=== PATIENT | male | born 1970 | race Caucasian/White ===

== ENCOUNTER 2019-05-20 11:02 | Outpatient (CLI) | payer OTHER, SELFPAY ==
--- NOTE | 2019-05-19 14:48 | DI.RAD_ITS ---
EXAM: XR KNEE RT 4V AP,LAT,BEAU,PAT INDICATION: KNEE PAIN. COMPARISON: RIGHT KNEE 3 VIEWS from 03/16/2012 TECHNIQUE: 2D digital imaging was performed. FINDINGS: Four views of the right knee and bilateral Merchant views were obtained. There is marked narrowing o f the medial tibiofemoral cartilaginous joint space. Mild narrowing of lateral patello femoral carti laginous joint space on the right also noted, there is mild bilateral lateral patellar subluxation. There are moderate marginal osteophytes of the right patella and of the medial tibiofemoral joint on the right. IMPRESSION: Conclusion degenerative Changes involving medial to tibial femoral joint and lateral patello femoral joint.
== END 2019-05-20 11:22 ==
PROVIDERS: Visit Provider Student in an Organized Health Care Education/Training Program
DX: M25.561 Pain in right knee (principal); M17.11 Unilateral primary osteoarthritis, right knee; M25.762 Osteophyte, left knee
CPT/HCPCS: 73564

== ENCOUNTER 2020-07-26 09:56 | Emergency (ER) | payer OTHER, SELFPAY ==
[2020-07-26 09:59] VITALS: BP 126/88; PULSE 69; TEMP 36.6; O2SAT 94
[2020-07-26] MEDS: Balanced Salt Solution 15 ML BTL OP (10:14)
[2020-07-26] MEDS: Erythromycin Ophth Oint 3.5 GM TUBE OP (10:14)
[2020-07-26] MEDS: Tetracaine 0.5% 4 ML BTL OP (10:15)
[2020-07-26] MEDS: Fluorescein STRIPS 100/BOX 1 MG OP (10:15)
--- NOTE | 2020-07-26 10:19 | ED.GENADUL_ITS ---
Discharge Plan Disposition Patient Disposition: HOME Condition: Stable Discharge Details Chief Complaint: EyeProblem Clinical Impression: Corneal ulcer, left Primary Care Provider: Unknown,Unknown ED Provider: Kelvin Christian Home Meds and New Rx's Prescriptions: No Action No Known Home Meds RF: 0 Discharge Instructions Additional Instructions: [facility] care will see you at 11 AM for consultation. Please go directly to [facility]. Take the erythromycin ointment with you put hold on use until directed by the golf tournament consultant. 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 Presents with day 2 of left eye irritation and pain. The eye is injected, and slit-lamp examination reveals a corneal ulceration at approximately 11 o'clock in the superonasal quadrant. The patient's golf tournament consultant is local [facility] eye care who is available to see him in 20 minutes. I will discharge him with erythromycin ointment but have him hold use until seen for further evaluation. HPI General Mode of arrival: ambulatory . Date/Time Provider Initiated Documentation: 07/26/20 10:02 . Limitations to Documentation: no limitations . Information obtained by: patient . History of Present Illness 50 year old M presents to the emergency department with the chief complaint of Left eye irritation and pain x2 days, described as moderate, Quality is described as dull, and is localized to the eyes and left. Patient reports no radiation. Patient started experiencing this day(s) and it has been constant. No relieving factors improve symptom(s), Other factors that worsen symptoms (Bright lights) . Patient notes other (Clear watery discharge). Patient did receive the following treatments prior to arrival, none Related Data Home Medications Medication Instructions Recorded Confirmed Unknown [No Known Home Meds] 02/28/18 07/26/20 Allergies Allergy/AdvReac Type Severity Reaction Status Date / Time No Known Drug Allergies Allergy Unverified 07/26/20 10:03 General Stated Complaint: EyeProblem CHIQUI: 4 Review of Systems Narrative: No recent illness. Otherwise healthy male. [facility] Surgical History Arthroplasty of knee R Tonsillectomy Social History Smoking/Tobacco Use Status: Never Smoking risk assessment performed?: Yes Alcohol Intake: current Alcohol Intake frequency: a few times a week Alcohol type: beer Drug use: Never Substance use type: does not use Current gender identity: male Do you feel safe at home: Yes Do you feel safe in your relationship?: Yes Exam Narrative Exam Narrative: GEN: awake, alert, oriented 3. Pleasant, well groomed, interactive. HEAD: Normocephalic, atraumatic ENT: Left tympanic membrane slightly injected, no loss of light reflex, right tympanic membrane unremarkable, external ear exam unremarkable EYES: PERRL, EOMI. the left eye is injected. Fluorescein exam reveals left eye superonasal ulceration at the border of the iris, approximately 11 oclock. No Claudine sign CHEST/RESP: No respiratory distress Neuro: Grossly normal neurologic exam, conversant, interactive. Psych: Speech fluent, thoughts congruent, affect normal Course Vital Signs Vital signs: Vital Signs Temperature 36.6 C 07/26/20 09:59 Pulse 69 07/26/20 09:59 Blood Pressure 126/88 07/26/20 09:59 Pulse Oximetry 94 07/26/20 09:59 Temperature 36.6 C 07/26/20 09:59 Temperature Source Temporal Artery Scan 07/26/20 09:59 Pulse 69 07/26/20 09:59 Respiratory Effort Non-Labored 07/26/20 10:01 Blood Pressure 126/88 07/26/20 09:59 Blood Pressure Position Sitting 07/26/20 09:59 Pulse Oximetry 94 07/26/20 09:59 Oxygen Delivery Method Room Air 07/26/20 09:59 Oxygen Flow Rate 0 07/26/20 09:59 Pain Level 5 07/26/20 09:59
== END 2020-07-26 10:35 | disposition home or self-care (01) ==
PROVIDERS: Emergency Provider Emergency Medicine
DX: H16.002 Unspecified corneal ulcer, left eye (principal)
CPT/HCPCS: 99283

== ENCOUNTER 2021-03-28 10:55 | Emergency (ER) | payer OTHER, SELFPAY ==
[2021-03-28 10:59] VITALS: BP 126/77; PULSE 76; RESP 16; TEMP 37.2; O2SAT 96
--- NOTE | 2021-03-28 11:00 | DI.RAD_ITS ---
Exam(s) XR ANKLE RT COMPLETE EXAM: XR ANKLE RT COMPLETE CLINICAL HISTORY: felt pop while running, r/o fx. TECHNIQUE: 2D digital imaging was performed. COMPARISON: CR LEFT ANKLE COMPLETE from 02/05/2012 CR XR FOOT RT COMPLETE from 03/28/2021 CR XR FOOT RT COMPLETE from 03/28/2021 FINDINGS: BONES: No acute fracture is present. No bony destructive lesion is seen. Chronic appearing small sm oothly marginated bony densities beneath the medial malleolus. Heel spur. JOINTS: The ankle mortise is normally aligned. SOFT TISSUE: Normal. IMPRESSION: No acute abnormality. DATA REPOSITORY: RADIATION DOSE DELIVERED:
--- NOTE | 2021-03-28 11:00 | DI.RAD_ITS ---
Exam(s) XR FOOT RT COMPLETE EXAM: XR FOOT RT COMPLETE CLINICAL HISTORY: felt pop when running, r/o fx 5th MT. TECHNIQUE: 2D digital imaging was performed. COMPARISON: No exams were available for comparison FINDINGS: BONES: No acute fracture is present. No bony destructive lesion is seen. Small heel spurs. JOINTS: No dislocation present. Mild intertarsal degenerative changes. SOFT TISSUE: Normal. IMPRESSION: No acute abnormality. DATA REPOSITORY: RADIATION DOSE DELIVERED:
--- NOTE | 2021-03-28 11:13 | W.ED.GENAD ---
Discharge Plan Disposition Patient Disposition: HOME Condition: Stable Discharge Details Clinical Impression: Right foot sprain Primary Care Provider: Unknown,Unknown ED Provider: Shreya Bhandari Home Meds and New Rx's Prescriptions: No Action No Known Home Meds RF: 0 Discharge Instructions Instructions: Foot Sprain (ED) Additional Instructions: Rest, ice, and elevate the affected area as much as possible. Alternate tylenol and motrin as needed and directed for pain. Follow-up with your primary care doctor in 1 week and with orthopedics if your symptoms do not improve or worsen. Return to the emergency department with any worsening or new concerning symptoms. Referrals: Jerry Arellano MD [ [facility] STAFF PHYSICIAN] - Discharge Data Discharge Date/Time-TO BE ENTERED AT DEPARTURE: 03/28/21 12:01 Discharge Physician: Shreya Bhandari Medical Decision Making 51-year-old male presents with pain overlying the right fifth metatarsal after feeling a pop in his foot in this area while running yesterday. Tenderness to palpation overlying base of the right fifth metatarsal with pain in his right lateral malleolus with range of motion. There is no deformity and he is neurovascularly intact. Patient referred for x-rays which were negative. Patient declined Shai wrap or postop shoe. Advised on the importance of RICE. He was given orthopedic follow-up information if needed. Usual and customary return precautions given prior to discharge. Medical Records Medical records reviewed: Yes I reviewed the patient's medical records. Imaging Data Radiologic Study: Radiologist's impression: XR ANKLE RT COMPLETE CLINICAL HISTORY: felt pop while running, r/o fx. TECHNIQUE: 2D digital imaging was performed. COMPARISON: CR LEFT ANKLE COMPLETE from 02/05/2012 CR XR FOOT RT COMPLETE from 03/28/2021 CR XR FOOT RT COMPLETE from 03/28/2021 FINDINGS: BONES: No acute fracture is present. No bony destructive lesion is seen. Chronic appearing small smoothly marginated bony densities beneath the medial malleolus. Heel spur. JOINTS: The ankle mortise is normally aligned. SOFT TISSUE: Normal. IMPRESSION: No acute abnormality. XR FOOT RT COMPLETE CLINICAL HISTORY: felt pop when running, r/o fx 5th MT. TECHNIQUE: 2D digital imaging was performed. COMPARISON: No exams were available for comparison FINDINGS: BONES: No acute fracture is present. No bony destructive lesion is seen. Small heel spurs. JOINTS: No dislocation present. Mild intertarsal degenerative changes. SOFT TISSUE: Normal. IMPRESSION: No acute abnormality. HPI General Mode of arrival: ambulatory. Date/Time Provider Initiated Documentation: 03/28/21 11:06. Limitations to Documentation: no limitations. Information obtained by: patient. HPI Narrative: Patient is a 51-year-old male who presents with right foot pain after feeling a pop in his right lateral foot while running yesterday. Patient states he has pain in his right fifth metatarsal. He does admit to some pain radiating to his right ankle. He took ibuprofen prior to arrival. Related Data Home Medications Medication Instructions Recorded Confirmed Unknown [No Known Home Meds] 02/28/18 03/28/21 Allergies Allergy/AdvReac Type Severity Reaction Status Date / Time No Known Drug Allergies Allergy Unverified 03/28/21 11:06 General Stated Complaint: Orthopedic CHIQUI: 4 Review of Systems All systems reviewed & are unremarkable except as noted in HPI and below PFSH Surgical History Arthroplasty of knee R Tonsillectomy Social History Smoking/Tobacco Use Status: Never Smoking risk assessment performed?: Yes Alcohol Intake: current Alcohol Intake frequency: a few times a week Alcohol type: beer Drug use: Never Substance use type: does not use Current gender identity: male Do you feel safe at home: Yes Do you feel safe in your relationship?: Yes Exam Const General: cooperative, healthy appearing and no acute distress HENMT Head: normal to inspection Mouth: oral mucosae normal Eyes General: appearance normal, both eyes and all related structures Neck Neck: normal visual inspection Resp Effort & Inspection: normal respiratory effort and able to speak in complete sentences Cardio Rate: regular rate Skin General skin exam: no rashes or lesions noted Neuro General: patient alert, patient awake and patient oriented x3 Motor: muscle tone normal throughout Extrem Ankle/foot/toe images: 1. Tenderness to palpation overlying base of fifth metatarsal on dorsal and plantar surface. Other: There is pain in right lateral malleolus with range of motion but no tenderness to palpation to medial or lateral malleolus. There is no deformity. Neurovascularly intact. Psych Appearance: grossly normal Affect: normal affect Course Vital Signs Vital signs: Vital Signs Temperature 99.0 F 03/28/21 10:59 Pulse 76 03/28/21 10:59 Respiratory Rate 16 03/28/21 10:59 Blood Pressure 126/77 03/28/21 10:59 Pulse Oximetry 96 03/28/21 10:59 Temperature 99.0 F 03/28/21 10:59 Temperature Source Tympanic 03/28/21 10:59 Pulse 76 03/28/21 10:59 Respiratory Rate 16 03/28/21 10:59 Respiratory Effort Non-Labored 03/28/21 11:06 Blood Pressure 126/77 03/28/21 10:59 Blood Pressure Position Sitting 03/28/21 10:59 Pulse Oximetry 96 03/28/21 10:59 Oxygen Delivery Method Room Air 03/28/21 10:59 Oxygen Flow Rate 0 03/28/21 10:59 Pain Level 3 03/28/21 11:08
== END 2021-03-28 12:01 | disposition home or self-care (01) ==
PROVIDERS: Emergency Provider Physician Assistant
DX: S93.691A Other sprain of right foot, initial encounter (principal); S99.911A Unspecified injury of right ankle, initial encounter; X50.9XXA Other and unspecified overexertion or strenuous movements or postures, initial encounter; Y93.02 Activity, running
CPT/HCPCS: 99284; 73610; 73630; 99283

== ENCOUNTER 2021-07-06 02:43 | Outpatient (CLI) | payer OTHER, SELFPAY ==
[2021-07-06 10:14] LABS: Source Nasal/Nares
[2021-07-06 13:11] LABS: COVID-19 PCR Negative (Negative)
== END 2021-07-06 02:44 | disposition home or self-care (01) ==
LOC: LBO 02:43
PROVIDERS: Surgery; Visit Provider Physical Therapy Assistant
DX: Z20.822 Contact with and (suspected) exposure to COVID-19 (principal); Z01.818 Encounter for other preprocedural examination
CPT/HCPCS: 87635

== ENCOUNTER 2021-07-09 10:02 | Day surgery (SDC) | payer OTHER, SELFPAY ==
--- NOTE | 2021-07-09 06:40 | W.COLOREPORT ---
Colonoscopy Report Date of procedure: 07/09/21 Pre-op diagnosis general: Colon Cancer Screening Post-op diagnosis procedure note: same Procedure: Colonoscopy Surgeon: Stefania Dao Anesthesia Type: General:No Airway (Purnima Bruno CRNA) Estimated blood loss (mL): 0 Pathology: none sent Complications: None Disposition: same day Indications: Encounter for screening colonoscopy: The patient is here for Colonoscopy pre-op. He has no family history of colon cancer. He has not had any bowel habit changes. -Discussed colonoscopy bowel prep as well as the procedure. Discussed possible complications of the procedure to include bleeding, pain, perforation, missed small lesion/polyp, sore throat, aspiration and adverse reaction to the medications. Questions were answered to patient?s satisfaction. No guarantees were implied or given. Prep: Miralax/Dulcolax Procedure Start Time: 11:54 Procedure End Time: 12:15 Retraction Time: 10 minutes Findings: NOrmal colon Procedure Description: After informed consent was obtained the patient was taken to the procedure room and placed in a left decubitous position. Monitors were applied and a time out was done. The patients name, date of , procedure, allergies to medications and metal in their body was reviewed. The patient was then sedated. Once sedated and comfortable a rectal exam was done. External exam was normal. Internal exam revealed a normal sphincter tone and no palpable masses. The prostate felt smooth. The scope was then introduced and retro-flexed. No internal hemorrhoids, polyps or masses were identified on retro-flexion. The scope was then advanced to the cecum without difficulty. The ileocecal vlave and appendiceal orifice were identified. The prep was good. The scope was then slowly retracted over 10 minutes back into the rectum. There were no Polyps or diverticulosis noted. The scope was removed and the patient was woken up and taken back to Same day surgery in stable condition. The patient tolerated the procedure well and there were no immediate complications. Follow up: The patient should follow up in 10 years unless they develop changes in bowel habits or other new gastrointestinal complaints.
--- NOTE | 2021-07-09 06:41 | W.PM.DSUDISC ---
Discharge Plan Disposition Patient Disposition: HOME Condition: Stable Discharge Details Reason For Visit: Colonoscopy Attending Provider: Stefania Dao Primary Care Provider: Unknown,Unknown Home Meds and New Rx's Prescriptions: No Action No Known Home Meds RF: 0 Discharge Instructions Additional Instructions: Findings: Normal Follow up: 10 years Please call if you develop: fevers >101.5 Nausea or Vomiting Abdominal pain that is not transient Rectal bleeding that is more then a tbsp A hard abdomen and inability to pass gas DAY SURGERY UNIT POST ENDOSCOPY INSTRUCTIONS Instructions for everyone who is given Anesthesia: For your safety, please do the following for the next 24 Hours: a. Do not drive or operate dangerous equipment b. Do not drink alcohol beverages or use any recreational drugs for the first 24 hours or while taking pain medications. The medications in your body may have a reaction that can be dangerous. c. Do not make any important decisions or sign any important papers 1. Generally there are no restrictions on your activity after a day or so has gone by, but you may feel a bit fatigued for a few days. 2. After you arrive home you may have a light meal and return to a normal diet as you can tolerate it without feeling sick to your stomach. 3. After surgery, you may feel pain or discomfort. This should be only transient, but if it persists please contact your doctor. 4. If there are any questions regarding the findings of your procedure, please feel free to contact your doctor. 6. If you are unable to contact your doctor with a problem, contact the hospital at [phone]. 7. Continue all your regular medications unless directed otherwise. I understand the above instructions and have no questions. Signature of Patient or Responsible Adult Escort Date/Time Name of Responsible Adult Escort Signature of Nurse Date/Time Activity:: Activity as Tolerated Diet:: As Tolerated Discharge Orders Discharge Orders: Discharge Order (Routine); Ordered 07/09/21 Ordered By: Stefania Dao
[2021-07-09 10:29] VITALS: BP 138/95; PULSE 70; RESP 18; TEMP 37.1; O2SAT 98
[2021-07-09] MEDS: Lactated Ringers 1,000 ML 80 ML IV (10:47)
--- NOTE | 2021-07-09 10:59 | W.ANESPRE ---
General Info Date of Service Date Performed: 07/09/21 Height: 5 ft 4 in Weight: 79.9 kg Body Mass Index (BMI): 30.2 Surgical Procedure: Operation Date: 07/09/21 11:50 Proposed Procedures Side Surgeon génesis Dao MD Meds Allergies and Home Medications Allergies Allergy/AdvReac Type Severity Reaction Status Date / Time No Known Drug Allergies Allergy Unverified 07/09/21 10:24 Home Medication Medication Instructions Recorded Unknown [No Known Home Meds] 02/28/18 Current Visit Medications: Current Medications Generic Name Dose Route Start Last Admin Trade Name Freq PRN Reason Stop Dose Admin Hyoscyamine Sulfate 0.125 mg 07/09/21 06:42 Hyoscyamine 0.125 Mg Sl/Oral/Chew SL DIRECTED PRN Ringer's Solution 1,000 mls @ 80 mls/hr 07/09/21 06:00 07/09/21 10:47 IV 08/05/21 23:59 80 mls/hr INFUSION ALAYNA Administration IV Miscellaneous Supplies 1 each 07/09/21 06:00 Iv Access IV 08/05/21 23:59 DIRECTED ALAYNA Ondansetron HCl 4 mg 07/09/21 06:42 Ondansetron 4 Mg/2 Ml Vial IVP Q4H PRN PRN Nausea / Vomiting Sodium Chloride 0 ml 07/09/21 06:00 Normal Saline Flush 10 Ml Syr IV 08/05/21 23:59 PRN PRN Sodium Chloride 0 ml 07/09/21 06:00 Normal Saline 10 Ml Vial IJ 08/05/21 23:59 DIRECTED PRN Sterile Water 0 ml 07/09/21 06:00 Water,Injection,Sterile 10 Ml Vial IJ 08/05/21 23:59 DIRECTED PRN PFSH Active Problems Active Problems: Problem Status Onset Code Chondromalacia, 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 Encounter for screening for other viral diseases Z11.59 Right foot sprain S93.601A Skin lesion L98.9 Medical History Active Problem List Chondromalacia, right knee (Acute) 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 (Acute) Encounter for screening for other viral diseases (Acute) Right foot sprain (Acute) Skin lesion (Acute) Surgical History Surgical History Arthroplasty of knee R-Arthroscopy Tonsillectomy Tobacco Smoking/Tobacco Use Status: Never Alcohol Alcohol Intake: current Alcohol intake frequency: a few times a week Alcohol type: beer Substance Use Substance use: Never Substance use type: does not use Vital Signs and Lab Results Vital Signs Most Recent Vital Signs in EMR: Most Recent Vital Signs Temp Pulse Resp BP Pulse Ox 37.1 C 70 18 138/95 H 98 07/09/21 10:29 07/09/21 10:29 07/09/21 10:29 07/09/21 10:29 07/09/21 10:29 Lab Results Blood Type / Crossmatch: No Data to Display Complete Blood Count: No Data to Display Complete Metabolic Panel: No Data to Display Liver Function Panel: No Data to Display Coagulation Panel: No Data to Display Cardiac Panel: No Data to Display Arterial Blood Gas: No Data to Display Venous Blood Gas: No Data to Display Pancreas Panel: No Data to Display Thyroid Panel: No Data to Display Infectious Disease: Coronavirus (COVID-19)(PCR) Negative (Negative) 07/06/21 08:37 07/06/21 Coronavirus 2019 Source Nasal/Nares 07/06/21 08:37 07/06/21 Blood Cultures: No Data to Display Toxicology Panel: No Data to Display Anesthesia Assessment and Plan Anesthesia History Personal History: No History of Anesthesia Complications Family History: No Family History of Anesthesia Complications Exercise Tolerance Exercise Tolerance: Metabolic Equivalents>4 Pertinent Negatives Pertinent Negatives: No Symptoms of GERD, No Major Cardiovascular Symptoms or Complaints, No Major Pulmonary Symptoms or Complaints and No History of CVA/TIA Cardiac & Pulmonary Exam Cardiac Exam: Normal S1/S2 Heart Sounds Pulmonary Exam: Clear Bilateral Breath Sounds Implantable Cardiac Device Does patient have a Pacemaker or an ICD?: No Airway Exam Known Difficult Airway: No Mallampati Class: 2 Mouth Opening: Normal (> 3cm) Thyromental Distance: Greater than 3 cm Neck Range of Motion: Full ROM Neck Circumference: Normal Teeth Condition: Normal Dentition ASA Classification ASA Score: ASA 2 Emergency Case?: No NPO Status NPO Status: NPO Clears >2 hours, Solids >8 hours Anesthesia Plan Resuscitation Status: Full Code Anesthesia Technique: General Anesthesia Airway Planned: Natural Airway Monitors Used: Standard Monitors
[2021-07-09 11:00] VITALS: BMI 30.2
[2021-07-09 12:28] VITALS: BP 136/90; PULSE 78; RESP 16; TEMP 36.3; O2SAT 96
--- NOTE | 2021-07-09 12:50 | W.ANESPOSTOP ---
Postoperative Evaluation Date, Time and Location Date Performed: 07/09/21 Time Performed: 12:50 Patient Location: Day Surgery Unit Vital Signs Most Recent Imported Vital Signs: Most Recent Vital Signs Temp Pulse Resp BP Pulse Ox 36.3 C L 78 16 136/90 96 07/09/21 12:28 07/09/21 12:28 07/09/21 12:28 07/09/21 12:28 07/09/21 12:28 Pain Score Most Recent Pain Score: Most Recent Pain Score Pain Level 0 07/09/21 12:28 Assessment Mental Status: Awake (Alert & Oriented to Patient Baseline) Airway and Respiratory Function: Patent airway with normal (patient baseline) respiratory exam Cardiovascular Function: Hemodynamically Stable Hydration Status: Adequately Hydrated Nausea & Vomiting: No Nausea or Vomiting Pain: Pt. Denies Any Pain Peripheral Nerve Block: Patient did not receive a nerve block
[2021-07-09 12:55] VITALS: BP 130/89; PULSE 66; RESP 16; TEMP 36.3; O2SAT 98
== END 2021-07-09 13:05 | disposition home or self-care (01) ==
LOC: SUR 10:03
PROVIDERS: Visit Provider Surgery
PROC: 0DJD8ZZ Inspection of Lower Intestinal Tract, Via Natural or Artificial Opening Endoscopic (ICD-10-PCS; CPT 45378; principal; 2021-07-09 11:45)
DX: Z12.11 Encounter for screening for malignant neoplasm of colon (principal)
CPT/HCPCS: 45378; J2704

== ENCOUNTER 2022-05-13 15:27 | Outpatient (CLI) | payer OTHER, SELFPAY ==
--- NOTE | 2022-05-13 15:15 | DI.RAD_ITS ---
Exam(s) XR STANDING ALIGNMENT XR KNEE RT 1V EXAM: XR STANDING ALIGNMENT CLINICAL HISTORY: preop. TECHNIQUE: 2D digital imaging was performed. Standing AP views were performed from the pelvis throu gh the ankles. COMPARISON: CR XR KNEE RT 4V AP,LAT,BEAU,PAT from 05/19/2019 CR XR KNEE RT 1V from 05/13/2022 FINDINGS: BONES: No acute fracture is present. No bony destructive lesion is seen. Leg length discrepancy: No significant leg length discrepancy. JOINTS: Knees: There is moderate severe narrowing narrowing of the medial femoral tibial joint space. There is prominent periarticular spurring. Spurring is also noted at the patella. There is an ent hesophyte at the quadriceps insertion. Mild degenerative changes are noted in the left knee. The ankle joints are unremarkable. The hip joints are unremarkable. SOFT TISSUE: Normal. IMPRESSION: Advanced degenerative changes of the right knee.. No significant leg length discrepancy. DATA REPOSITORY: RADIATION DOSE DELIVERED:
== END 2022-05-13 15:28 | disposition home or self-care (01) ==
LOC: DIORS 15:27
PROVIDERS: Visit Provider Physician Assistant Surgical
DX: M94.261 Chondromalacia, right knee (principal); M17.11 Unilateral primary osteoarthritis, right knee
CPT/HCPCS: 73560; 77073

== ENCOUNTER 2022-05-22 15:12 | Outpatient (CLI) | payer OTHER, SELFPAY ==
[2022-05-22 14:47] LABS: HCT 43.7 % (40.0-50.0); HGB 15.2 g/dL (13.5-17.5); MCH 31.2 pg (27.0-33.0); MCHC 34.8 % (32.0-36.0); MCV 90 fL (80-95); MPV 10.2 fL (8.0-11.0); Platelet Count 267 10^3/uL (130-400); RBC 4.87 10^6/uL (4.36-5.78); RDW-SD 39.2 fL
[2022-05-22 15:35] LABS: Anion Gap 8.8 mmol/L (3-11); BUN 29 mg/dL (7-18); CO2 27.2 mmol/L (21.0-32.0); CREATININE 1.1 mg/dL (0.70-1.30); Calcium 9.8 mg/dL (8.5-10.1); Chloride 103 mmol/L (98-107); Estimated GFR 81.28 (mL/min/1.73m2); Glucose 99 mg/dL (74-106); Potassium 3.9 mmol/L (3.5-5.1); Sodium 139 mmol/L (136-145)
== END 2022-05-22 15:13 | disposition home or self-care (01) ==
LOC: LBO 15:12
PROVIDERS: Visit Provider Student in an Organized Health Care Education/Training Program
DX: M25.561 Pain in right knee (principal); M17.11 Unilateral primary osteoarthritis, right knee; Z01.818 Encounter for other preprocedural examination; Z01.812 Encounter for preprocedural laboratory examination
CPT/HCPCS: 36415; 80048; 85027

== ENCOUNTER 2022-05-28 08:34 | Day surgery (SDC) | payer OTHER, SELFPAY ==
[2022-05-28] VITALS (11 sets, daily range): BP systolic 113–139; BP diastolic 68–99; PULSE 68–86; RESP 11–18; TEMP 36.3–36.7; O2SAT 95–97; BMI 29.5
--- NOTE | 2022-05-28 07:26 | PDOC.DSDIS_ITS ---
Discharge Plan Disposition Patient Disposition: HOME Condition: Good Discharge Details Reason For Visit: Right TKA Attending Provider: Jared Duarte Primary Care Provider: Unknown,Unknown Home Meds and New Rx's Prescriptions: New celecoxib [Celebrex] 200 mg capsule 200 mg PO BID Qty: 60 0RF aspirin 81 mg tablet,delayed release (DR/EC) 81 mg PO BID Qty: 60 0RF pantoprazole [Protonix] 40 mg tablet,delayed release (DR/EC) 40 mg PO DAILY Qty: 30 0RF gabapentin 300 mg capsule 300 mg PO QHS Qty: 14 0RF acetaminophen 500 mg capsule 1,000 mg PO Q8H PRN PRNQty: 90 0RF oxycodone 5 mg tablet 5 mg PO Q4H PRNQty: 18 0RF dexamethasone [Decadron] 4 mg tablet 4 mg PO DAILY Qty: 2 0RF Discharge Instructions Additional Instructions: Total Knee Discharge Instructions Activity: The most important activity is to walk and to work on gentle motion (both flexion and extension). You should try to take short walks a few times a day. It is important that when resting you work on keeping the knee straight. Avoid putting a pillow behind the knee as this will encourage flexion. Work on range of motion exercises as provided by Physical Therapy. - Start outpatient physical therapy within 2 weeks. - You should wear the ZANDRA hose on both legs for 2 weeks. You may remove these at night. You may also use any compression sock in place of the ZANDRA hose. - Utilize [employer] to review exercises, see videos on exercises and obtain basic information pertaining to your surgery and your recovery. Dressing: Remove the Shai wrap by 2 days after your surgery and put on the ZANDRA stocking given to you from the hospital. Keep the surgical dressing (underneath the SHAI wrap) in place for at least one week. After the first week it may be removed and replaced with light gauze and tape or nothing. The wound and dressing may get wet after 3 days but avoid soaking the dressing or otherwise it will need to be changed. Many people prefer covering the dressing with cling wrap (saran wrap) to minimize it from getting soaked. If it gets wet, just pat dry. If it starts to peel off then it will need to be changed. Medications: - You should take Tylenol and anti-inflammatory Celebrex as your primary pain control medications. If the Celebrex is too expensive or not covered, please call the office for another alternative (Advil/Ibuprofen or Naproxen/Aleve) - You have been prescribed a stronger pain medication Oxycodone for breakthrough pain, take as needed as prescribed. - You have also been prescribed a stomach acid reduction agent Pantoprozole to help reduce stomach acid and reflux. - You have been prescribed Gabapentin to take at night for restlessness and nerve pain. - You will be taking Aspirin 81mg twice a day for DVT prevention unless instructed otherwise. - You have also been prescribed Decadron to take to control post-operative nausea and pain. You will start this tomorrow for 2 days. - If you have constipation you should take Colace or Miralax (both [id number]). It takes most people 3-4 days to have a bowel movement. Follow-up: 2 weeks If you have any acute concerns or questions, please do not hesitate to contact the office at [phone]. You may contact Dr. Duarte with any questions after hours through the hospital at [phone] or on his cell phone at [phone]. Referrals: Jared Duarte MD [ [facility] STAFF PHYSICIAN] - Activity:: Activity as Tolerated Remove Dressings/Wound Care:: Do Not Remove Shower/Bathe:: 72 hours Diet:: As Tolerated Discharge Orders Discharge Orders: Discharge Order (Routine); Ordered 05/28/22 Ordered By: Jody Sales DS: Diagnosis Discharge Diagnosis (1) Traumatic arthritis of right knee: Status: Acute
--- NOTE | 2022-05-28 09:07 | ANES.PREOP_ITS ---
General Info Date of Service Date Performed: 05/28/22 Height: 5 ft 5 in Weight: 80.5 kg Body Mass Index (BMI): 29.5 Surgical Procedure: Operation Date: 05/28/22 11:40 Proposed Procedure Side Surgeon p Knee Total Arthroplasty Cementless CR Right Jared Duarte MD Meds Allergies and Home Medications Allergies Allergy/AdvReac Type Severity Reaction Status Date / Time No Known Drug Allergies Allergy Verified 05/28/22 08:44 Home Medication Medication Instructions Recorded acetaminophen 500 mg capsule 1,000 mg PO Q8H PRN PRN #90 caps 05/28/22 aspirin 81 mg tablet,delayed 81 mg PO BID #60 tabs 05/28/22 release celecoxib 200 mg capsule (Celebrex) 200 mg PO BID #60 caps 05/28/22 dexamethasone 4 mg tablet 4 mg PO DAILY #2 tabs 05/28/22 (Decadron) gabapentin 300 mg capsule 300 mg PO QHS #14 caps 05/28/22 oxycodone 5 mg tablet 5 mg PO Q4H PRN #18 tabs 05/28/22 pantoprazole 40 mg tablet,delayed 40 mg PO DAILY #30 tabs 05/28/22 release (Protonix) Current Visit Medications: Current Medications Generic Name Dose Route Start Last Admin Trade Name Freq PRN Reason Stop Dose Admin Acetaminophen 1,000 mg 05/28/22 06:00 Acetaminophen 500 Mg Tab PO 05/28/22 16:00 PREOP [facility] Acetaminophen 1,000 mg 05/28/22 14:00 Acetaminophen 500 Mg Tab PO TID [facility] Celecoxib 400 mg 05/28/22 06:00 Celecoxib 200 Mg Cap PO 05/28/22 16:00 PREOP ALAYNA Celecoxib 200 mg 05/28/22 20:00 Celecoxib 200 Mg Cap PO BID ALAYNA Gabapentin 300 mg 05/28/22 06:00 Gabapentin 300 Mg Cap PO 05/28/22 16:00 PREOP ALAYNA Hydromorphone HCl 0.5 mg 05/28/22 07:25 Hydromorphone 2 Mg/Ml Syr IVP Q2H PRN PRN Tranexamic Acid 1,000 mg/ 60 mls @ 360 mls/hr 05/28/22 06:00 Sodium Chloride IVPB 05/28/22 16:00 PREOP ALAYNA Ringer's Solution 1,000 mls @ 80 mls/hr 05/28/22 06:00 IV 06/26/22 23:59 INFUSION ALAYNA Cefazolin Sodium/Dextrose 2 gm in 50 mls @ 100 mls/hr 05/28/22 06:00 Ancef Duplex IVPB 06/26/22 23:59 PREOP ALAYNA Cefazolin Sodium/Dextrose 1 gm in 50 mls @ 100 mls/hr 05/28/22 18:00 Ancef Duplex IVPB 05/29/22 10:29 Q8H ALAYNA IV Miscellaneous Supplies 1 each 05/28/22 06:00 Iv Access IV 06/26/22 23:59 DIRECTED ALAYNA Ondansetron HCl 4 mg 05/28/22 07:25 Ondansetron 4 Mg/2 Ml Vial IVP Q6H PRN PRN Nausea Oxycodone HCl 0 mg 05/28/22 07:25 Oxycodone 5 Mg Tab PO Q3H PRN PRN Pain Sodium Chloride 0 ml 05/28/22 06:00 Normal Saline Flush 10 Ml Syr IV 06/26/22 23:59 PRN PRN Sodium Chloride 0 ml 05/28/22 06:00 Normal Saline 10 Ml Vial IJ 06/26/22 23:59 DIRECTED PRN Sterile Water 0 ml 05/28/22 06:00 Water,Injection,Sterile 10 Ml Vial IJ 06/26/22 23:59 DIRECTED PRN PFSH Active Problems Active Problems: Problem Status Onset Code Traumatic arthritis of right knee M12.561 Chondromalacia, 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 Encounter for screening for other viral diseases Z11.59 Right foot sprain S93.601A Skin lesion L98.9 Medical History Medical History Normal colonoscopy (~06/2021) Surgical History Surgical History Arthroplasty of knee R-Arthroscopy History of colonoscopy (~06/2021) Tonsillectomy Tobacco Smoking/Tobacco Use Status: Never Alcohol Alcohol Intake: current Alcohol intake frequency: a few times a week Alcohol type: beer Substance Use Substance use: Never Substance use type: does not use Vital Signs and Lab Results Vital Signs Most Recent Vital Signs in EMR: Most Recent Vital Signs Temp Pulse Resp BP Pulse Ox 36.3 C L 86 18 139/91 H 97 05/28/22 08:35 05/28/22 08:35 05/28/22 08:35 05/28/22 08:35 05/28/22 08:35 Lab Results Blood Type / Crossmatch: No Data to Display Complete Blood Count: White Blood Count 9.00 10^3/uL (4.4-10.8) 05/22/22 14:35 Red Blood Count 4.87 10^6/uL (4.36-5.78) 05/22/22 14:35 Hemoglobin 15.2 g/dL (13.5-17.5) 05/22/22 14:35 Hematocrit 43.7 % (40.0-50.0) 05/22/22 14:35 Platelet Count 267 10^3/uL (130-400) 05/22/22 14:35 Complete Metabolic Panel: Sodium 139 mmol/L (136-145) 05/22/22 14:35 Potassium 3.9 mmol/L (3.5-5.1) 05/22/22 14:35 Chloride 103 mmol/L (98-107) 05/22/22 14:35 Carbon Dioxide 27.2 mmol/L (21.0-32.0) 05/22/22 14:35 BUN 29 mg/dL (7-18) H 05/22/22 14:35 Creatinine 1.1 mg/dL (0.70-1.30) 05/22/22 14:35 Est GFR (CKD-EPI 2020) 81.28 (mL/min/1.73m2) 05/22/22 14:35 Calcium 9.8 mg/dL (8.5-10.1) 05/22/22 14:35 Glucose 99 mg/dL (74-106) 05/22/22 14:35 Liver Function Panel: No Data to Display Coagulation Panel: No Data to Display Cardiac Panel: No Data to Display Arterial Blood Gas: No Data to Display Venous Blood Gas: No Data to Display Pancreas Panel: No Data to Display Thyroid Panel: No Data to Display Infectious Disease: No Data to Display Blood Cultures: No Data to Display Toxicology Panel: No Data to Display Anesthesia Assessment and Plan Anesthesia History Personal History: No History of Anesthesia Complications Family History: No Family History of Anesthesia Complications Exercise Tolerance Exercise Tolerance: Metabolic Equivalents>4 Pertinent Negatives Pertinent Negatives: No Symptoms of GERD, No Major Cardiovascular Symptoms or Complaints, No Major Pulmonary Symptoms or Complaints and No History of CVA/TIA Cardiac & Pulmonary Exam Cardiac Exam: Normal S1/S2 Heart Sounds Pulmonary Exam: Clear Bilateral Breath Sounds Implantable Cardiac Device Does patient have a Pacemaker or an ICD?: No Airway Exam Known Difficult Airway: No Mallampati Class: 2 Mouth Opening: Normal (> 3cm) Thyromental Distance: Greater than 3 cm Neck Range of Motion: Full ROM Neck Circumference: Normal Teeth Condition: Normal Dentition ASA Classification ASA Score: ASA 2 Emergency Case?: No NPO Status NPO Status: NPO Clears >2 hours, Solids >8 hours Anesthesia Plan Resuscitation Status: Full Code Anesthesia Technique: Spinal Anesthesia Airway Planned: Natural Airway Pain Management: Surgeon and patient request nerve block Monitors Used: Standard Monitors
[2022-05-28] MEDS: Celecoxib 200 MG CAP 400 MG PO (09:16)
[2022-05-28] MEDS: Gabapentin 300 MG CAP PO (09:17)
[2022-05-28] MEDS: Acetaminophen 500 MG TAB 1000 MG PO (09:17)
[2022-05-28] MEDS: Lactated Ringers 1,000 ML 80 ML IV (09:17)
[2022-05-28] MEDS: ceFAZolin 2 GM/50 ML BAG IVPB (10:29)
--- NOTE | 2022-05-28 11:26 | W.ANESNERVE ---
Nerve Block Single Injection Procedure Date and Time Date Performed: 05/28/22 Procedure Start: 10:10 Location Where Procedure Performed Procedure Location: Day Surgery Unit Reason Performed: Postoperative Analgesia Requesting Provider: Jared Duarte Timeout Performed Timeout Performed: Yes Monitoring Used ECG, Blood Pressure, SpO2 and See EMR for corresponding vital signs Sterility Sterility: Hand Hygiene, Surgical Cap, Surgical Mask, Sterile Gloves, Sterile Drape/Sheet and Chlorhexidine Sedation Given During Procedure Sedation Given (Indicate Dose Given): No Sedation given Patient Mental Status Patient Mental Status: Awake Nerve Block 1st Nerve Block: Laterality: Right Block Type: Adductor Canal Needle / Catheter Used: 100mm SonoPlex II Local Anesthetic Bolus (Indicate Dose Given): Lidocaine used for local infiltration of skin, Injected in 3-5ml increments after negative blood aspiration, Blood noted on aspiration (Needle withdrawn, line cleared prior to re-insertion. ), Bupivacaine 0.25% Dose:: 10 ml and Exparel Dose:: 10 ml Additives (Indicate Dose Given): None Ultrasound: Sterile probe cover and gel used Ultrasound Image Saved?: Yes Nerve Stimulator: Not Used Paresthesia: None Post Procedure Pain score (0-10): 0 Procedure Tolerated: No Complications and Patient tolerated well Procedure Outcome: Successful Performed By: Abena Bruno
[2022-05-28] MEDS: fentaNYL 100 MCG/2 ML VIAL IVP ×2 (12:37→13:03)
--- NOTE | 2022-05-28 13:52 | W.ANESPOSTOP ---
Postoperative Evaluation Date, Time and Location Date Performed: 05/28/22 Time Performed: 13:52 Patient Location: Day Surgery Unit Vital Signs Most Recent Imported Vital Signs: Most Recent Vital Signs Temp Pulse Resp BP Pulse Ox 36.5 C 75 18 113/71 97 05/28/22 13:33 05/28/22 13:33 05/28/22 13:33 05/28/22 13:33 05/28/22 13:33 Pain Score Most Recent Pain Score: Most Recent Pain Score Pain Level 1 05/28/22 13:20 Assessment Mental Status: Awake (Alert & Oriented to Patient Baseline) Airway and Respiratory Function: Patent airway with normal (patient baseline) respiratory exam Cardiovascular Function: Hemodynamically Stable Hydration Status: Adequately Hydrated Nausea & Vomiting: No Nausea or Vomiting Pain: Pain is tolerable per patient Peripheral Nerve Block: Regional nerve block not resolved at time of post operative discharge
--- NOTE | 2022-05-28 15:02 | PT.INIE ---
PT Notes Visit Reasons: Right TKA Inpatient Physical Therapy Evaluation Date: 05/28/22 Referring Doctor: Dr. Duarte PT Orders: PT CONSULT: right knee OA, s/p TKA post op day 0 Precautions: standard Patient Profile/Admitting Diagnosis: PT order received for 52 year old patient with right knee OA, s/p TKA post op day 0. PMHX: non-contributory Social History/Home Situation: Lives with in multi-level home. is present and supportive at time of consult. Equipment Owned/DME: bilat axillary crutches Subjective: Savage is anxious to get up and try walking. Has questions about resuming activity. Objective: General Observation: Resting in bed with cryocuff to right knee. Mental Status: A&Ox3 Pain: well-managed ROM: Right Upper Extremity: WFL Left Upper Extremity: WFL Right Lower Extremity: Actively demonstrates up to 90 degrees of hip flexion. Left Lower Extremity: WFL Strength: Right Upper Extremity: WFL Left Upper Extremity: WFL Right Lower Extremity: Able to demonstrate good quad activation with quad sets. Able to pump ankles and wiggle toes. Left Lower Extremity: WFL Sensation: intact distally Bed Mobility/Transfers: supine-sit: independent sit-stand: independent stand-sit: independent Gait: Ambulates 50'x2, FWW, CGA to supervision. Requests instruction with bilat axillary crutches, and ambulates additional 75' with CGA, cues and bilat axillary crutches. Stairs: manages therapeutic stairs x 2, bilat rails, CGA and cues for technique Balance: Static Sitting: normal Dynamic Sitting: normal Static Standing: good Dynamic Standing: fair Informed Consent/Education: Patient instructed in purpose of PT consult and plan of care. Treatment: Initial Evaluation: 68780 Gait Training Therapeutic Exercises: Instructed in the following: Ankle Pumps 10x Quad sets 10x Glute Sets 10x heel slides 10x SLR 10x Assessment: Patient is a 52 year old male referred to physical therapy services with the diagnosis of right knee OA, s/p TKA post op day 0. Patient presents with clinical signs and symptoms consistent with post-op status. He participated in one PT session for evaluation, gait and transfer training, and instruction in HEP. Was able to demonstrate sufficient mobility and safety to allow for safe return home with family support. Requires FWW for same household distance ambulation, although anticipate he'll be safe to transition to crutches within a few days. He currently demonstrates the following impairment level findings: 1. decreased RLE strength 2. gait impairments 3. decreased dynamic balance Impairments are contributing to the following functional limitations: 1. decreased tolerance to household distance ambulation 2. decreased independence with stair management Patient is assessed as Low 86246 complexity based on the following: History: 52 year old male with right knee OA, s/p TKA post op day 0. No complicating factors. Examination: functional limitations as above Presentation: stable Decision Making: low complexity Plan of Care/Treatment Plan: D/C from PT. Safe to return home with family support and FWW. DISCHARGE RECOMMENDATIONS: Home with no services TREATMENT CODE/TIME: [id number] (2:25 - 2:50) Emani Goel, PT, DPT [facility]
--- NOTE | 2022-05-28 21:30 | ROE_ITS ---
Date of service: 05/28/22 Time of Service: 12:00 Operative Note Operative Note DATE OF PROCEDURE: 05/28/22 PRE-OP DIAGNOSIS: Right Knee Post-traumatic Knee Arthritis POST-OP DIAGNOSIS: same PROCEDURE: Right Total Knee Replacement SURGEON: Jared Duarte ELECTRONIC PUBLICATIONS SPECIALIST: Jack Ly ANESTHESIA TYPE: Spinal Refer to Anesthesia Record ESTIMATED BLOOD LOSS: 100 PATHOLOGY: none sent TOURNIQUET TIME: 0 COMPLICATIONS: None Patient was transported to: PACU Patient's condition: stable Implants: 1. Depuy Attune Cementless Cruciate Retaining Femoral Component, Size 5 2. Depuy Attune Cementless Rotating Platform Tibial Component, Size 4 3. Depuy Attune 5x6 CR/RP Poly 4. Depuy Attune Patellar Component, Size 35 Indications: I have seen Savage in clinic for symptoms of knee arthritis, confirmed with radiographic findings. He has exhausted nonoperative methods and was having significant limitations in daily function and desired better function and less pain. I discussed the technical details of a knee replacement. I explained the risks of the procedure to include, but not limited to, bleeding, infection, pain, stiffness, fracture, damage to nerves and vessels, damage to muscles and tendons, loosening, need for repeat procedure, blood clot and cardiopulmonary demise. Despite these risks, Savage elected to proceed. Findings: There was significant signs of arthritis throughout the knee with large medial osteophytes, chronic ACL deficiency. Procedure Description: Savage was greeted in the preoperative holding area where the correct side was identified and marked. The consent was reviewed with the patient and signed. The history and physical was updated. All questions were answered. Preoperative medications were administered: Acetaminophen 1000mg, Celebrex 400mg, and Gabapentin 300mg. An adductor canal block was then administered by the anesthesia team in the PACU. Savage was taken back to the operating room. A spinal anesthestic was then administered. The patient was placed into the supine position on the operating room table. A nonsterile tourniquet was placed high onto the leg but only used for cementing. Posts were placed for positioning during the procedure. All bony prominences were well padded. Prophylactic antibiotics in the form of Cefazolin were administered. 1g of Tranxemic Acid was given intravenously within 30 minutes of incision. The right leg was then prepped with Chloraprep and draped in a standard fashion with impervious stockinette. A second prep with Chloraprep was performed prior to application of Iodine impregnated skin protection. A timeout to confirm correct identity, side and site, procedure, allergies, anesthesia, and medical concerns was performed. With the knee in some flexion, a midline incision was made overlying the knee. Full thickness skin flaps were raised once the extensor mechanism was encountered. These were raised medially and laterally. Any bleeding was controlled with electrocautery. Once the extensor mechanism was fully exposed, a medial parapatellar arthrotomy was performed in a flexed position. All bleeding from the arthrotomy and the geniculate arteries was coagulated. A medial subperiosteal peel was performed with electrocautery to the midcoronal plane. Due to the significant varus deformity the entire medial tibial plateau was exposed. The fat pad was removed while keeping the patellar tendon protected. The anterior distal femur synovium was removed for later visualization. The knee was then flexed with the patella everted. The PCL was resected and the anterior horn of the lateral meniscus was transected. ACL was deficient and not present. Large osteophytes from the tibia were removed, particularly posteromedial. Using a step drill, and based on preoperative templating, the femoral canal was entered. This was done with a step drill without any difficulty. The intramedullary distal femoral cut guide was inserted, set to a 5 degree valgus cut and 9mm cut thickness. The distal femoral cut guide was then held in position and pinned. With the soft tissues protected, the distal cut was performed. This was passed over a few times to ensure a planar cut. I then turned attention to the tibia. The extramedullary guide was placed onto the leg. The distal aspect was slid medial to adjust for position of center of ankle and stay in line with shaft of the tibia. Approximately 5 degrees of posterior slope was kept in the proximal cutting guide. The center of the guide was aligned with the PCL. The stylus was used to assess cut thickness. The medial side, most involved side, was set for a 4mm cut. This was then held in position and pinned into place with 2 additional pins and a cross pin for stability. The medial and lateral collateral ligaments were protected and the cut was performed. With this completed, it was assessed and noted to be of appropriate dimensions. The guide was removed. A spacer block was inserted and the knee was brought into extension. The 6mm spacer block provided full extension, without hyperextension and with stability of both the medial and lateral collateral ligaments was assessed. The pins from the femur and the tibia were then removed. The distal femur was then sized. The anterior stylus was placed onto the lateral ridge of the anterior femur. This indicated a size 6 femur. The external rotation of the guide was adjusted to 3 degrees to match the epicondylar axis, perpendicular to Héctor?s line. The 4-in-1 cutting guide was the placed. The posterior medial femur cut was evaluated and appeared of good thickness. The spacer block was inserted underneath the cutting guide and stability was confirmed in 90 degrees of flexion. An sydney wing was used to confirm appropriate position of the anterior cut to avoid notching. This cutting guide was ensured to be flush on the cut surface and then pinned into place with headed pins. While protecting the soft tissues, quad tendon, and collateral ligaments, the anterior and posterior cuts were performed with a saw. The central two pins were removed and the posterior and anterior chamfers were cut next. The notch-cutting guide was placed. This was pinned to lateralize the femoral component as much as possible while keeping it flush on the cut surface. This was then pinned into position. A reciprocating saw was used to make the notch cut. A rasp smoothed the cut surfaces. The medial and lateral menisci were removed. A trial femoral component was then inserted, impacted down to the cut surfaces, and the lug holes were drilled. A provisional trial tibial component was placed and the knee was brought through range of motion. The polyethylene was trialed until there was good flexion and extension with excellent stability to the medial and lateral collaterals. The patella was tracking without thumbs. A size 6mm polyethylene component provided the best range of motion and stabili ty with less than 2mm gapping with medial and lateral stress and full extension without significant hyperextension. The tibial cut surface was fully exposed. The tibia was then sized as a 4. The tibia had been previously marked during trialing to correspond to the center of the tibial component to help with rotation. The trial was aligned to this jack, approximately rotated to the medial 1/3rd of the tibial tubercle. The trial was pinned into place. The tibia was prepared with a reamer and a keel punch and lug holes. The knee was then brought into extension and the patella was measured as 25mm. Using the patellar clamp and cut guide, this was resected to a flat surface with at least 13mm of thickness remaining. The size 35 patella fit the best. This was oriented and then clamped into position. The lugs were drilled. The trial components were removed. The final components were opened on the back table. The periosteal and capsular tissues, especially posteriorly, around the knee were then systematically injected with a periarticular cocktail consisting of 246mg of Ropivacaine, 0.5mg of Epinephrine, 0.08mg of Clonidine, and 30mg of Ketorolac, diluted to 100cc. On the back table, with the implants opened, the cement was mixed. One batch of high viscosity cement was prepared with vacuum assistance. After the cement was ready a small amount was placed on the cut surface of the patella and the patellar button was clamped into position and held. While the cement was hardening, the cementless knee components were placed. Starting with the tibial component, the tibia was subluxed anteriorly and the lug holes of the component were lined up. The tibia was then impacted with an impactor and mallet until the tibial component was in contact with the tibia. The final polyethylene component was inserted. Then, the femoral component was inserted. The lug holes were aligned and the component was impacted into position. The knee was irrigated with Surgiphor Betadine solution. This was allowed to sit in the knee for 3 minutes and then it was irrigated out with saline. After the cement had finally cured, approximately 15min, the clamp was removed from the patella and the knee was taken through range of motion. The patella was tracking with a no-thumbs technique. The capsule was then reapproximated with a No. 1 Vicryl at multiple locations. The capsule was finally closed with a No. 2 Stratafix, barbed suture. The second dosing of 1g TXA was started. Deep tissues were then reapproximated with 0 Vicryl and 2-0 Vicryl. The skin was closed with a running 3-0 Monocryl in a subcuticular fashion. This was reinforced with skin glue. A Mepilex silver dressing was applied along with a [id number] AYALA wrap. A CryoCuff was applied. Savage was transferred to the hospital bed without difficulty an suffering no apparent complication. He has a good prognosis. Physical therapy will start today and without restrctions. ASA 81mg for DVT prophylxis
== END 2022-05-28 15:25 | disposition home or self-care (01) ==
PROVIDERS: Visit Provider Student in an Organized Health Care Education/Training Program
PROC: (CPT 27447; principal; 2022-05-28 11:30)
DX: M17.31 Unilateral post-traumatic osteoarthritis, right knee (principal)
CPT/HCPCS: 27447; 76942; 97161; J0690; J1100; J2250; J2405; J2704; J3010

== ENCOUNTER 2022-06-10 10:24 | Outpatient (CLI) | payer OTHER, SELFPAY ==
--- NOTE | 2022-06-10 09:00 | DI.RAD_ITS ---
Exam(s) XR KNEE RT 1V XR STANDING ALIGNMENT EXAM: XR STANDING ALIGNMENT CLINICAL HISTORY: R TKR. TECHNIQUE: 2D digital imaging was performed. Standing AP views were performed from the pelvis throu gh the ankles. Lateral view of the right knee. COMPARISON: CR XR STANDING ALIGNMENT from 05/13/2022 CR XR KNEE RT 1V from 05/13/2022 CR XR KNEE RT 1V from 06/10/2022 FINDINGS: BONES: Patient is status post placement of a right total knee prosthesis. No acute fracture is prese nt. No bony destructive lesion is seen. Leg length discrepancy: JOINTS: Knees: Right knee prosthesis with satisfactory alignment. No C abnormal surrounding lucencie s. Left knee joint spaces are maintained. The ankle joints show mild narrowing medially. The hip joints are unremarkable. SOFT TISSUE: Anterior swelling at the right knee. IMPRESSION: Status post right knee prosthesis. No significant leg length discrepancy. DATA REPOSITORY: RADIATION DOSE DELIVERED:
== END 2022-06-10 10:25 | disposition home or self-care (01) ==
LOC: DIORS 10:26
PROVIDERS: Visit Provider Physician Assistant
DX: Z96.651 Presence of right artificial knee joint (principal); Z47.1 Aftercare following joint replacement surgery
CPT/HCPCS: 73560; 77073

== ENCOUNTER 2025-01-12 21:41 | Outpatient (REF) | payer OTHER, SELFPAY ==
[2025-01-12 22:13] LABS: Anion Gap 8.9 mmol/L (3-11); BUN 24 mg/dL (7-18); CO2 26.1 mmol/L (21.0-32.0); CREATININE 1.3 mg/dL (0.70-1.30); Calcium 9.5 mg/dL (8.5-10.1); Chloride 104 mmol/L (98-107); Estimated GFR 65.69 (mL/min/1.73m2); Glucose 95 mg/dL (74-106); Potassium 4.3 mmol/L (3.5-5.1); Sodium 139 mmol/L (136-145)
== END 2025-01-12 21:42 | disposition home or self-care (01) ==
LOC: LBN 21:41
PROVIDERS: PCP Nurse Practitioner Adult Health; Visit Provider Nurse Practitioner Adult Health
DX: Z68.32 Body mass index [BMI] 32.0-32.9, adult (principal); Z51.81 Encounter for therapeutic drug level monitoring; Z79.899 Other long term (current) drug therapy
CPT/HCPCS: 80048